=== PATIENT | female | born 1985 | race Two or more races ===

== ENCOUNTER 2019-03-23 08:16 | Inpatient (IN) | payer BC ==
[2019-03-23] VITALS (13 sets, daily range): BP systolic 107–137; BP diastolic 62–84
[~2019-03-23] VITALS: Ht 172.7 cm; Wt 60.8 kg
[2019-03-23] MEDS ORDERED: ONDANSETRON HCL/PF 4 MG/2 ML VIAL ONE (08:26)
[2019-03-23] MEDS ORDERED: IV NS 0.9% 1,000 ML BAG IV ONE (08:30)
[2019-03-23] MEDS ORDERED: ONDANSETRON HCL/PF 4 MG/2 ML VIAL IVP ONE (08:30)
--- NOTE | 2019-03-23 08:30 | NUR ---
Patient came in BIBRA and mother. c/o nausea vomiting since last night. On room air, breathing evenly and unlabored. Connected to the montior and pulse ox. Kept comfortable. Will continue to monitor.
[2019-03-23 08:40] LABS: BILIRUBIN,URINE SMALL (NEGATIVE); BLOOD, URINE Trace-lysed Ery/uL (NEGATIVE); COLOR,URINE Yellow (YELLOW); KETONES,URINE >=160 (NEGATIVE); LEUKOCYTE ESTERASE ,URINE Negative (NEGATIVE); NITRITE, URINE Negative (NEGATIVE); PROTEIN,URINE 30 mg/dl (NEGATIVE); UGLUCOSE 500 MG/DL mg/dL (NEGATIVE); UROBILINOGEN,URINE 0.2 EU/dL (0.2)
[2019-03-23 08:41] LABS: APPEARANCE,URINE Hazy (CLEAR)
--- NOTE | 2019-03-23 08:47 | NUR ---
urine collected and sent to lab. Blood drawned and given to laborer powerhouse.
[2019-03-23 08:50] LABS: BACTERIA,URINE Rare /HPF (None Seen); SQUAMOUS EPITHELIAL CELL,UR Few /HPF (None Seen); WBC,URINE 0-2 /HPF (0-3)
[2019-03-23 08:54] LABS: BASOPHILS % (AUTO) 0.3 % (0.0-2.0); HEMATOCRIT 48 % (33-45); HEMOGLOBIN 15.5 g/dL (11.5-14.8); LYMPHOCYTES % (AUTO) 7.2 % (20.0-44.0); MEAN CORPUSCULAR HGB CONC 33 g/dl (31.0-36.0); MEAN CORPUSCULAR VOLUME 87 fL (82-100); MONOCYTES # (AUTO) 0.7 /CMM (0.1-1.30); MONOCYTES % (AUTO) 5.2 % (2.0-12.0); NEUTROPHILS # (AUTO) 11.6 /CMM (1.8-8.9); NEUTROPHILS % (AUTO) 87.3 % (43.0-81.0); PLATELET COUNT (AUTO) 354 /CMM (150-450); RED BLOOD CELL COUNT(AUTO) 5.49 MIL/uL (4.0-5.2); WHITE BLOOD COUNT (AUTO) 13.3 K/uL (4.3-11.0)
[2019-03-23 09:00] LABS: BILIRUBIN,DIRECT 0.2 mg/dL (0.0-0.2); BILIRUBIN,TOTAL 0.7 mg/dL (0.2-1.0); CALCIUM, SERUM 10.4 mg/dL (8.5-10.1); CREATININE 1.4 mg/dL (0.6-1.3); POTASSIUM 4.4 mmol/L (3.5-5.1); TOTAL PROTEIN, SERUM 8.9 g/dL (6.4-8.2)
[2019-03-23] MEDS ORDERED: POTASSIUM CL. PREMIX PERIPHER. 50 ML ONE ×2 (09:10→09:41)
[2019-03-23] MEDS: POTASSIUM CL. PREMIX PERIPHER. 50 ML IV SCH ×2 (09:15→10:15)
[2019-03-23] MEDS ORDERED: INSULIN REGULAR, HUMAN 100 UNIT in IV NS 0.9% 99 ML IV ONE ×2 (09:30)
[2019-03-23] MEDS ORDERED: LIDOCAINE 0.5% HCL 50 ML VIAL IJ ONE (09:30)
[2019-03-23] MEDS ORDERED: HEPARIN-LOCK FLUSH PORCINE PF 100 UNITS/1 ML (10 ML)DISP.SYRIN IV PRN (09:30)
--- NOTE | 2019-03-23 11:18 | NUR ---
wheeled patient via gurney accompanied by RN and EMT in no apparent distress noted.
--- NOTE | 2019-03-23 12:00 | NUR ---
TOOL CHASER ADMITTING NOTES: Pt admitted in ICU for DKA on insulin drip. Pt transferred via gurney to rm [id number]. Pt is A/O x 4, denies any pain/discomfort, N/V at this time. No SOB while on R/A. ST on telemonitor. IV line access on RAC G20 w/ KCl drip ongoing, LAC G20 w/ insulin drip x 6u/hr & LORI midline SL infusing well. Pt is ambulatory w/ steady gait. Kept NPO at this time. Skin is intact. Belongings checked. Safety precaution in place w/ bed in lowest & locked pos. Call light placed w/in reach Will cont to monitor & attend pt needs. Followed up w/ Dr. Sams admitting orders. Per MD, may use BS x 1.5/100 protocol. Faxed DKA order sheet to pharmacy.
[2019-03-23] MEDS ORDERED: INSULIN REGULAR, HUMAN 100 UNIT in IV NS 0.9% 99 ML IV PRN ×2 (13:00)
[2019-03-23] MEDS ORDERED: ACETAMINOPHEN 325 MG TABLET PO PRN (13:00)
[2019-03-23] MEDS ORDERED: ONDANSETRON HCL/PF 4 MG/2 ML VIAL IVP PRN (13:00)
[2019-03-23] MEDS ORDERED: ZOLPIDEM TARTRATE 5 MG TABLET PO PRN (13:00)
[2019-03-23] MEDS ORDERED: Potassium Chloride 40 MEQ in IV D5/ 0.9% NACL 1,000 ML IV PRN (13:00)
[2019-03-23 13:48] LABS: CALCIUM, SERUM 8.6 mg/dL (8.5-10.1); MAGNESIUM 1.9 mg/dL (1.8-2.4); PHOSPHORUS 1.9 mg/dL (2.5-4.9); POTASSIUM 5.1 mmol/L (3.5-5.1)
[2019-03-23] MEDS ORDERED: Sodium Phosphate 15 MMOL in IV D5W 250 ML IV ONE (14:00)
[2019-03-23] MEDS ORDERED: IV D5/ 0.9% NACL 1,000 ML IV PRN (14:00)
[2019-03-23] MEDS: ENOXAPARIN SODIUM 40 MG/0.4 ML DISP.SYRIN SQ SCH (14:38)
[2019-03-23] MEDS: BLOOD SUGAR DIAGNOSTIC 1 EACH STRIP IN SCH ×8 (16:00→23:06)
[2019-03-23 17:03] LABS: CALCIUM, SERUM 8.2 mg/dL (8.5-10.1); CREATININE 1.1 mg/dL (0.6-1.3); POTASSIUM 3.4 mmol/L (3.5-5.1)
[2019-03-23 17:07] LABS: MAGNESIUM 1.8 mg/dL (1.8-2.4); PHOSPHORUS 4.8 mg/dL (2.5-4.9)
--- NOTE | 2019-03-23 17:32 | NUR ---
K is 3.4, called Dr. Sams & ordered to change current IVF to D5NS + 20 meqs KCL x 125 cc/hr.
--- NOTE | 2019-03-23 18:58 | NUR ---
NURSE CLINICAL CLOSING NOTES: Pt still on every 1 hr blood sugar checks, on insulin drip. No SOB on R/A. ST/SR on telemonitor. IV line access kept patent & intact on RAC G20, LAC G20 w/ insulin drip x 3u/hr & LORI midline SL. Awaiting for D5NS + 20 meqs of KCl, Jacky pharmacist already informed. Kept NPO at this time. Skin remains intact. Safety precaution kept in place w/ bed in lowest & locked pos. Call light placed w/in reach Will endorsed to PM RN for APRIL.
--- NOTE | 2019-03-23 19:00 | NUR ---
RECEIVED PATIENT IN NO ACUTE DISTRESS IN BED. PATIENT IS ALERT AND ORIENTED AT 4 AND ABLE TO MAKE NEEDS KNOWN. PATIENT IS ON ROOM AIR AND TOLERATING WELL. PATIENT NOT COMPLAINING OF ANY SHORTNESS OF BREATH, DIFFICULTY BREATHING OR PAIN AT THIS TIME. PATIENT HAS RIGHT UPPER ARM MIDLINE THAT IS CLEAN DRY INTACT AND PATENT WITH SALINE LOCK. PATIENT HAS RIGHT AC 20G THAT IS CLEAN DRY INTACT AND PATIENT WITH D51/2 NS @ 125ML/HR. PATIENT HAS LEFT AC 20G THAT IS CLEAN DRY INTACT AND PATENT WITH INSULIN DRIP TITRATED PER BLOOD SUGAR LEVEL. BED IN LOW LOCK POSITION WITH RIALS UP X 2. CALL LIGHT WITHIN REACH AND ALL SAFETY MEASURES ENSURED AND CARRIED OUT.
[2019-03-23 20:00] LABS: CALCIUM, SERUM 8.2 mg/dL (8.5-10.1); POTASSIUM 3.3 mmol/L (3.5-5.1)
--- NOTE | 2019-03-23 20:00 | NUR ---
PATIENT NOTIFIED RN THAT PATIENT WAS THIRSTY. NOTIFIED PATIENT THAT SHE IS NPO. NOTIFIED OPTICAL ENGINEERING TECHNICIAN JESICA RODRIGUEZ IF PATIENT CAN HAVE ICE CHIPS. RECEIVED ORDERS THAT ICE CHIPS ARE OK.
[2019-03-23 20:04] LABS: MAGNESIUM 1.8 mg/dL (1.8-2.4); PHOSPHORUS 3.6 mg/dL (2.5-4.9)
[2019-03-23] MEDS: Potassium Chloride 20 MEQ in IV D5/ 0.9% NACL 1,000 ML IV PRN (20:07)
[2019-03-23 22:51] LABS: CREATININE 1.1 mg/dL (0.6-1.3); POTASSIUM 3.6 mmol/L (3.5-5.1)
[2019-03-23 22:55] LABS: MAGNESIUM 1.7 mg/dL (1.8-2.4); PHOSPHORUS 2.1 mg/dL (2.5-4.9)
--- NOTE | 2019-03-23 23:00 | NUR ---
PATIENT NOTIFIED RN THAT SHE HAS ACID REFLUX. NOTIFIED CROZE CUTTER JESICA DNP AND RECEIVED ORDERS TO GIVE MAALOX 30ML PO Q6H PRN. READ BACK ORDERS PERFORMED AND CARRIED OUT.
[2019-03-23] MEDS ORDERED: MAG HYDROX/AL HYDROX/SIMETH 30 ML UDC PO PRN (23:30)
[2019-03-24] VITALS (17 sets, daily range): BP systolic 100–141; BP diastolic 66–92
[2019-03-24] MEDS: BLOOD SUGAR DIAGNOSTIC 1 EACH STRIP IN SCH ×14 (00:10→21:29)
[2019-03-24 01:57] LABS: CALCIUM, SERUM 8.1 mg/dL (8.5-10.1); MAGNESIUM 1.7 mg/dL (1.8-2.4); PHOSPHORUS 2.4 mg/dL (2.5-4.9); POTASSIUM 3.1 mmol/L (3.5-5.1)
--- NOTE | 2019-03-24 02:00 | NUR ---
NOTIFIED OCCUPATIONAL THERAPY CO DIRECTOR JESICA DNP THAT PATIENT BLOOD SUGAR IS 99 WITH ANION GAP AT 15 PER CALCULATIONS. PER JESICA DNP DC INSULIN DRIP WHEN ANION GAP PER LAB IS AT 15 AND NOT CALCULATED, THEN START PATIENT ON AGGRESSIVE SCALE WITH ACCU CHECKS Q4H. READ BACK ORDERS PERFORMED AND CARRIED OUT. WILL CONTINUE TO MONITOR PT.
[2019-03-24] MEDS ORDERED: POTASSIUM CHLORIDE 20 MEQ TAB.PRT.SR PO ONE (03:00)
[2019-03-24] MEDS: Magnesium 1GM/D5W 100ML PREMIX 100 ML IV SCH ×2 (03:40→04:52)
[2019-03-24 04:17] LABS: BASOPHILS # (AUTO) 0.1 /CMM (0.0-0.2); BASOPHILS % (AUTO) 0.6 % (0.0-2.0); EOSINOPHILS % (AUTO) 0.3 % (0.0-6.0); HEMATOCRIT 38 % (33-45); HEMOGLOBIN 12.8 g/dL (11.5-14.8); LYMPHOCYTES # (AUTO) 1.9 /CMM (0.8-4.8); LYMPHOCYTES % (AUTO) 20.1 % (20.0-44.0); MEAN CORPUSCULAR HGB CONC 34 g/dl (31.0-36.0); MEAN CORPUSCULAR VOLUME 85 fL (82-100); MONOCYTES # (AUTO) 0.8 /CMM (0.1-1.30); MONOCYTES % (AUTO) 8.4 % (2.0-12.0); NEUTROPHILS # (AUTO) 6.6 /CMM (1.8-8.9); NEUTROPHILS % (AUTO) 70.6 % (43.0-81.0); PLATELET COUNT (AUTO) 266 /CMM (150-450); RED BLOOD CELL COUNT(AUTO) 4.48 MIL/uL (4.0-5.2); WHITE BLOOD COUNT (AUTO) 9.3 K/uL (4.3-11.0)
[2019-03-24 04:32] LABS: ALBUMIN 3.2 g/dL (3.4-5.0); BILIRUBIN,TOTAL 0.5 mg/dL (0.2-1.0); CALCIUM, SERUM 7.8 mg/dL (8.5-10.1); MAGNESIUM 1.7 mg/dL (1.8-2.4); PHOSPHORUS 2.3 mg/dL (2.5-4.9); POTASSIUM 3.8 mmol/L (3.5-5.1)
[2019-03-24 05:14] LABS: THYROID STIMULATING HORMONE 0.535 uIU/mL (0.358-3.74)
[2019-03-24] MEDS: Potassium Chloride 20 MEQ in IV D5/ 0.9% NACL 1,000 ML IV PRN (06:04)
[2019-03-24] MEDS ORDERED: Sodium Phosphate 7.5 MMOL in IV D5W 100 ML IV ONE (07:00)
--- NOTE | 2019-03-24 07:05 | NUR ---
RN NOTES RECEIVED PT ON BED, A/Ox4, ON RA , RESPIRATION EVEN AND UNLABORED, NO SOB NOTED, ON TELE, SR HR IN 80'S , PT IS NPO , R UPPER ARM MIDLINE , R AC AND L AC IV SITES , CLEAN, DRY AND INTACT , PT ON INSULIN GTT AT 1CC/HR AT THIS TIME , SR UP x3, CALL LIGHT WITHIN EASY REACH, BED LOCKED AND IN LOWEST POSITION, CONTINUE TO MONITOR .
--- NOTE | 2019-03-24 07:22 | NUR ---
PATIENT REMAINS IN NO ACUTE DISTRESS IN BED. PT DID NOT HAVE ANY SIGNIFICANT CHANGE IN CONDITION DURING SHIFT. ALL NEEDS MET, ALL ORDERS CARRIED OUT. WILL ENDORSE CARE TO AM RN FOR CONTINUITY OF CARE.
[2019-03-24] MEDS: ENOXAPARIN SODIUM 40 MG/0.4 ML DISP.SYRIN SQ SCH (08:32)
[2019-03-24] MEDS ORDERED: INSU100V7 SQ (08:50)
[2019-03-24] MEDS ORDERED: INSU100I4 SQ (08:50)
--- NOTE | 2019-03-24 09:10 | NUR ---
RN NOTES DR PULIDO NOTIFED REGARDING BMP RESULTS, REPEAT BMP ORDER GIVEN . CONTINUE TO MONITOR .
[2019-03-24 09:48] LABS: CALCIUM, SERUM 7.1 mg/dL (8.5-10.1); CREATININE 0.9 mg/dL (0.6-1.3); POTASSIUM 4.7 mmol/L (3.5-5.1)
[2019-03-24 10:33] LABS: CALCIUM, SERUM 7.7 mg/dL (8.5-10.1); CREATININE 0.9 mg/dL (0.6-1.3)
[2019-03-24] MEDS: IV NS 0.9% 1,000 ML IV PRN (10:55)
[2019-03-24] MEDS ORDERED: DEXTROSE 50%-WATER 50 ML DISP.SYRIN IV PRN (11:00)
--- NOTE | 2019-03-24 11:50 | NUR ---
RN NOTES DR PULIDO NOTIFED REGARDING ACCU CHECKS RESULTS , CONTINUE WITH SLIDING SCALE PER MD ORDER. NO DISTRESS NOTED, CONTINUE TO MONITOR .
[2019-03-24] MEDS: *INSULIN REGULAR(HUMULIN R)HUM 100 UNIT/ML VIAL SQ PRN ×2 (11:57→21:33)
[2019-03-24] MEDS ORDERED: BLOOD SUGAR DIAGNOSTIC 1 EACH STRIP VI SCH (12:00)
--- NOTE | 2019-03-24 13:10 | NUR ---
RN NOTES PT TRANSFERRED TO ROOM 313-2, MS STATUS WITH ALL HER BELONGINGS IN STABLE CONDITION .
--- NOTE | 2019-03-24 13:10 | NUR ---
ms rn notes received pt in bed, a/ox4. family at bedside. oriented to room. vs wnl. pt receiving iv fluids at 100cc/hr via lac #20. iv sites flushed patent: LORI bell, RAC #20, LAC #20. bed in locked/lowest position. call light in reach. will cont to monitor.
[2019-03-24] MEDS: INSULIN REGULAR, HUMAN 100 UNIT/ML 3 ML VIAL SQ PRN (17:26)
--- NOTE | 2019-03-24 18:34 | NUR ---
MS RN NOTES PT IN BED, WITH VISITOR AT BEDSIDE. ALL NEEDS ATTENDED TO. PT'S BLOOD SUGAR CONTROLLED WITH INSULIN. NOT IN DISTRESS. NO C/O PAIN. CALL LIGHT IN REACH. WILL ENDORSE TO PM NURSE FOR APRIL.
--- NOTE | 2019-03-24 19:50 | NUR ---
RN MS OPENING NOTES RECEIVED PT IN BED, AWAKE ALERT ORIENTEDX4, BREATHING EVEN AND UNLABORED ON ROOM AIR. NO COMPLAINT OF PAIN OR DISCOMFORT AT THIS TIME. IV ACCES ON THE RIGHT AC, LEFT AC 20G. BED IN LOWEST LOCKED POSITION, CALL LIGHT WITHIN REACH AT ALL TIME WILL CONTINUE TO MONITOR FREQUENTLY
[2019-03-24] MEDS ORDERED: INSULIN GLARGINE, 100 UNIT/ML CARTRIDGE SQ SCH (22:00)
[2019-03-25] MEDS: IV NS 0.9% 1,000 ML IV PRN (06:24)
[2019-03-25] MEDS: BLOOD SUGAR DIAGNOSTIC 1 EACH STRIP IN SCH ×2 (06:30→11:16)
[2019-03-25] MEDS: INSULIN REGULAR, HUMAN 100 UNIT/ML 3 ML VIAL SQ PRN (06:31)
--- NOTE | 2019-03-25 06:50 | NUR ---
RN MS CLOSING NOTES PT REMAINS IN BED, AWAKE ALERT ORIENTEDX4, BREATHING EVEN AND UNLABORED ON ROOM AIR. NO COMPLAINT OF PAIN OR DISCOMFORT AT THIS TIME. IV ACCES ON THE RIGHT AC, LEFT AC 20G. BG OF 134 BED IN LOWEST LOCKED POSITION, CALL LIGHT WITHIN REACH AT ALL TIME WILL ENDORSE TO DAY NURSE FOR APRIL
[2019-03-25 08:00] VITALS: BP 116/80
--- NOTE | 2019-03-25 08:02 | NUR ---
RN OPENING NOTES PT AWAKE AND RESTING IN BED. NO COMPLAINTS OF PAIN, SOB OR DISTRESS. PER PATIENT "FEELING A LOT BETTER AND READY TO GO HOME". SAFETY PRECAUTIONS IN PLACE, BED IN LOWEST LOCKED POSITION, X2 SIDE RAILS UP AND CALL LIGHT WITHIN REACH. WILL CONTINUE TO MONITOR.
[2019-03-25] MEDS: ENOXAPARIN SODIUM 40 MG/0.4 ML DISP.SYRIN SQ SCH (08:34)
[2019-03-25 08:54] LABS: HEMATOCRIT 44 % (33-45); HEMOGLOBIN 14.6 g/dL (11.5-14.8); LYMPHOCYTES # (AUTO) 1.2 /CMM (0.8-4.8); LYMPHOCYTES % (AUTO) 29.8 % (20.0-44.0); MEAN CORPUSCULAR HGB CONC 33 g/dl (31.0-36.0); MEAN CORPUSCULAR VOLUME 84 fL (82-100); MONOCYTES # (AUTO) 0.4 /CMM (0.1-1.30); MONOCYTES % (AUTO) 10.9 % (2.0-12.0); NEUTROPHILS # (AUTO) 2.3 /CMM (1.8-8.9); NEUTROPHILS % (AUTO) 56.3 % (43.0-81.0); PLATELET COUNT (AUTO) 222 /CMM (150-450); RED BLOOD CELL COUNT(AUTO) 5.19 MIL/uL (4.0-5.2); WHITE BLOOD COUNT (AUTO) 4.1 K/uL (4.3-11.0)
[2019-03-25 09:05] LABS: CALCIUM, SERUM 8.1 mg/dL (8.5-10.1); CREATININE 0.7 mg/dL (0.6-1.3); MAGNESIUM 2.1 mg/dL (1.8-2.4); PHOSPHORUS 2.6 mg/dL (2.5-4.9); POTASSIUM 3.4 mmol/L (3.5-5.1)
--- NOTE | 2019-03-25 11:15 | NUR ---
RN NOTES PT REQUESTED TO HAVE BLOOD SUGAR CHECKED PRIOR TO DISCHARGE. PT BLOOD SUGAR 378. PT GIVEN 10 UNITS. WILL CHECK BLOOD SUGAR AGAIN PRIOR TO DISCHARGE.
[2019-03-25] MEDS: *INSULIN REGULAR(HUMULIN R)HUM 100 UNIT/ML VIAL SQ PRN (11:22)
--- NOTE | 2019-03-25 12:15 | NUR ---
RN NOTES BLOOD SUGAR RECHECKED AND BLOOD SUGAR NOW 348. INSULIN EFFECTIVE.
--- NOTE | 2019-03-25 12:41 | NUR ---
FLATWARE MAKER NOTES PT STABLE AT DISCHARGE. ALL DISCHARGE PAPERWORK DISCUSSED, SIGNED, COPIED, AND GIVEN TO THE PATIENT. ALL PATIENT BELONGINGS TAKEN WITH THE PATIENT. ID AND IV REMOVED PRIOR TO DISCHARGE. RN ACCOMPANIED PATIENT AND PATIENT'S MOTHER SOO OFF THE UNIT AT 1241.
== END 2019-03-25 12:35 | disposition home or self-care (01) | DRG 637 ==
LOC: ER 08:16 → ICU 11:11 → MED 03-24 13:05
PROVIDERS: ADMIT Nurse Practitioner Acute Care; ATTEND Internal Medicine
DX: E10.10 Type 1 diabetes mellitus with ketoacidosis without coma (principal); N17.0 Acute kidney failure with tubular necrosis; F28 Other psychotic disorder not due to a substance or known physiological condition; F43.9 Reaction to severe stress, unspecified; E86.0 Dehydration; E83.52 Hypercalcemia; E83.39 Other disorders of phosphorus metabolism; E10.43 Type 1 diabetes mellitus with diabetic autonomic (poly)neuropathy; K31.84 Gastroparesis
CPT/HCPCS: 36415; 36569; 71045-TC; 80048-TC; 80053-TC; 80061-TC; 80076-TC; 81000-TC; 82962-TC; 83690-TC; 83735-TC; 84100-TC; 84443-TC; 84703-TC; 85025-TC; 87081-TC; A9563; G0378; J1650; J1815; J2405; J3475; J3480; J7030; J7042; J7060